=== PATIENT | male | born 1935 | race African-American/Black ===

== ENCOUNTER 2016-10-13 16:29 | Inpatient (IN) | payer BC, MEDICARE, OTHER ==
[~2016-10-13] VITALS: Ht 185.4 cm; Wt 115.0 kg
[2016-10-13] MEDS ORDERED: SODIUM CHLORIDE 0.9% 1,000 ML ONE (19:51)
[2016-10-13] MEDS ORDERED: MAG HYDROX 30 ML UDC PO PRN (21:55)
[2016-10-13] MEDS ORDERED: SALINE FLUSH 10 ML FLUSH PRN (21:55)
[2016-10-13] MEDS ORDERED: ALU/MAG/SIM 30 ML UDC PO PRN (21:55)
[2016-10-13] MEDS ORDERED: BISACODYL 10 MG SUPP RECTAL PRN (21:55)
[2016-10-13] MEDS ORDERED: BISACODYL EC 5 MG TAB PO PRN (21:55)
[2016-10-13 22:45] VITALS: BP_SYST 132; RESP 20; TEMP 99.2; Ht 185.4 cm; Wt 115.0 kg
[2016-10-14] VITALS (9 sets, daily range): BP systolic 90–139; RESP 18–20; TEMP 97.9–98.6
[2016-10-14] MEDS ORDERED: ACETAMINOPHEN 500 MG TAB PO ONE (01:25)
[2016-10-14] MEDS: SODIUM CHLORIDE 0.9% FLUSH BAG 500 ML IV SCH (01:51)
[2016-10-14] MEDS: LACT RINGERS 1,000 ML IV SCH ×2 (01:51→17:12)
[2016-10-14] MEDS: SALINE FLUSH 10 ML FLUSH SCH ×2 (07:49→20:00)
[2016-10-14] MEDS: ONDANSETRON 4 MG VIAL IV PRN ×2 (12:19→18:51)
[2016-10-14] MEDS ORDERED: [UNRECOGNIZED DRUG - SUPPLY] TOPICAL ONE (14:15)
[2016-10-14] MEDS ORDERED: ARTIF TEARS OP SOLN 0.4ML EYE EACH PRN (20:20)
[2016-10-14] MEDS: MUPIROCIN 2% CR 15 GM TOPICAL SCH (21:00)
[2016-10-14] MEDS: Atorvastatin 10 MG TAB PO SCH ×2 (21:00→21:57)
[2016-10-14] MEDS: GABAPENTIN 600 MG TAB PO SCH (21:57)
[2016-10-15] VITALS (11 sets, daily range): BP systolic 106–148; RESP 14–22; TEMP 97.8–98.8
[2016-10-15] MEDS: SODIUM CHLORIDE 0.9% FLUSH BAG 500 ML IV SCH (06:00)
[2016-10-15] MEDS ORDERED: TAMSULOSIN 0.4 MG CAP PO SCH (09:00)
[2016-10-15] MEDS ORDERED: Finasteride 5 MG TAB PO SCH (09:00)
[2016-10-15] MEDS: MUPIROCIN 2% CR 15 GM TOPICAL SCH (09:00)
[2016-10-15] MEDS ORDERED: METOPROLOL XL 50 MG TAB PO SCH (09:00)
[2016-10-15] MEDS ORDERED: ASPIRIN EC 81 MG TAB PO SCH (09:00)
[2016-10-15] MEDS: GABAPENTIN 600 MG TAB PO SCH (09:00)
[2016-10-15] MEDS: SALINE FLUSH 10 ML FLUSH SCH (09:08)
[2016-10-15] MEDS: ACETAMINOPHEN 500 MG TAB PO SCH ×2 (09:08)
[2016-10-15] MEDS ORDERED: [UNRECOGNIZED DRUG - SUPPLY] TOPICAL ONE (14:30)
[2016-10-15] MEDS: ONDANSETRON 4 MG VIAL IV PRN (15:19)
[2016-10-15] MEDS ORDERED: ACETAMINOPHEN 500 MG TAB PO SCH (21:00)
[2016-10-15] MEDS ORDERED: GABAPENTIN 600 MG TAB PO SCH (21:00)
== END 2016-10-15 17:56 | disposition home or self-care (01) | DRG 683 ==
LOC: ENRESERVTM → ENRESERVDT → ENRESERV → ER 16:29 → EMR 21:19 → 3NT 22:51
PROVIDERS: ADMIT Family Medicine; ATTEND Family Medicine
DX: N17.9 Acute kidney failure, unspecified (principal); I13.0 Hypertensive heart and chronic kidney disease with heart failure and stage 1 through stage 4 chronic kidney disease, or unspecified chronic kidney disease; I50.22 Chronic systolic (congestive) heart failure; E87.5 Hyperkalemia; N18.9 Chronic kidney disease, unspecified; Z91.11 Patient's noncompliance with dietary regimen; Z91.19 Patient's noncompliance with other medical treatment and regimen; I87.8 Other specified disorders of veins; A08.4 Viral intestinal infection, unspecified; E78.5 Hyperlipidemia, unspecified; N40.0 Benign prostatic hyperplasia without lower urinary tract symptoms; K21.9 Gastro-esophageal reflux disease without esophagitis; E11.9 Type 2 diabetes mellitus without complications; Z95.0 Presence of cardiac pacemaker; F17.200 Nicotine dependence, unspecified, uncomplicated; Z82.49 Family history of ischemic heart disease and other diseases of the circulatory system; Z79.82 Long term (current) use of aspirin
CPT/HCPCS: 36415; 80048; 80053; 80162; 81001; 82947; 83605; 83630; 83690; 83735; 85025; 87045; 87046; 87177; 87493; 93005; 94799; 99222; 99233; 99239